=== PATIENT | female | born 1960 | race Caucasian/White ===

== ENCOUNTER 2025-02-28 11:55 | Outpatient (CLI) | payer OTHER, MEDICAID | END 2025-02-28 11:56 | disposition home or self-care (01) | LOC: BICMAMMO 11:55 | PROVIDERS: ATTEND Student in an Organized Health Care Education/Training Program | DX: E07.9 Disorder of thyroid, unspecified (principal); Z78.0 Asymptomatic menopausal state; M85.851 Other specified disorders of bone density and structure, right thigh; M85.852 Other specified disorders of bone density and structure, left thigh | CPT/HCPCS: 77080 ==